=== PATIENT | male | born 1955 | race Caucasian/White ===

== ENCOUNTER 2017-10-08 04:20 | Observation (INO) | payer BC ==
[~2017-10-08] VITALS: Ht 177.8 cm; Wt 92.8 kg
[~2017-10-08 04:20] MED LIST: ASPIRIN EC325 MG PO; CIPRO500 MG PO; FLAGYL500 MG PO; IBUPROFEN800 MG PO; MOTRIN800 MG PO; PRILOSEC40 MG PO; TYLENOL REGULA325 MG PO; TYLENOL WITH C1 EACH PO
[2017-10-08 06:20] LABS: HEMATOCRIT 44.7 % (38.0-50.0); HEMOGLOBIN 15.3 G/DL (12.5-16.6); MCH 32.3 PG (29.0-34.0); MCHC 34.2 G/DL (30.0-36.0); MCV 94.3 FL (86-99); PLATELET COUNT 206 K/uL (156-360); RBC DIS.WIDTH-CV 13.8 % (11.8-14.6); RBC DIS.WIDTH-SD 48.3 % (39-53); RED BLOOD COUNT 4.74 M/uL (4.00-5.50); WHITE BLOOD COUNT 9.5 K/uL (4.1-10.2)
[2017-10-08 06:38] LABS: CHLORIDE 104 mEq/L (99-109); POTASSIUM 4.4 mEq/L (3.7-5.4); SODIUM 137 mEq/L (136-147)
[2017-10-08 06:40] LABS: GLUCOSE 107 mg/dL (70-99)
[2017-10-08 06:41] LABS: TOTAL PROTEIN 6.6 g/dL (6.4-8.3)
[2017-10-08 06:42] LABS: TOTAL BILIRUBIN 0.6 mg/dL (0.0-1.0)
[2017-10-08 06:44] LABS: ALKALINE PHOSPHATASE 47 IU/L (3-129); CREATININE 1.6 mg/dL (0.6-1.3); GFR ESTIMATE (CALCULATED) 47 mL/min/ (58.99-99999)
[2017-10-08 06:45] LABS: UREA NITROGEN (BUN) 30 mg/dL (9-23)
[2017-10-08 06:46] LABS: AST (GOT) 15 IU/L (2-34)
[2017-10-08 06:47] LABS: ALT (GPT) 18 IU/L (3-49)
[2017-10-08 06:48] LABS: TROP-I INTERPRETATION NEGATIVE; TROPONIN-I 0.01 ng/mL (0.0-0.30)
[2017-10-08 07:54] LABS: ERTH.SED.RATE 16 MM/HR (0-20)
[2017-10-08] MEDS ORDERED: ECOTRIN325 MG PO (09:47)
[2017-10-08] MEDS ORDERED: PROAIR HFA8.5 GM IH (09:48)
[2017-10-08] MEDS ORDERED: ESOMEPRAZOLE MA40 MG PO (09:48)
[2017-10-08] MEDS ORDERED: VALSARTAN320 MG PO (09:48)
[2017-10-08] MEDS ORDERED: FLUTICASONE PRO16 GM BOTH NARES (09:49)
[2017-10-08] MEDS ORDERED: MEDROL4 MG PO ×2 (09:53→09:54)
[2017-10-08 13:43] LABS: TROP-I INTERPRETATION NEGATIVE; TROPONIN-I < 0.01 ng/mL (0.0-0.30)
[2017-10-08 15:43] VITALS: BP 108/74
[2017-10-08 19:39] LABS: TROP-I INTERPRETATION NEGATIVE; TROPONIN-I < 0.01 ng/mL (0.0-0.30)
[2017-10-08 20:00] VITALS: BP 82/78; BP 85/93; BP 88/60
[2017-10-09 00:36] VITALS: BP 106/63
[2017-10-09 04:43] VITALS: BP 110/69
[2017-10-09 06:30] LABS: CHLORIDE 106 MEQ/L (99-109); CREATININE 1.3 MG/DL (0.6-1.3); GFR ESTIMATE (CALCULATED) > 59 mL/min/ (58.99-99999); GLUCOSE 87 mg/dL (70-99); POTASSIUM 4.1 MEQ/L (3.7-5.4); SODIUM 140 MEQ/L (136-147); UREA NITROGEN (BUN) 24 mg/dL (9-23)
[2017-10-09 06:57] VITALS: BP 107/72
[2017-10-09 09:12] LABS: HDL CHOLESTEROL 30 MG/DL (Desirable>=40); LDL CHOLESTEROL 63 mg/dL (Desirable<100); NON-HDL CHOLESTEROL 92 mg/dL (Desirable<160); TOTAL CHOLESTEROL 122 mg/dL (Desirable<200); TRIGLYCERIDES 147 MG/DL (Normal: <150)
[2017-10-09 10:39] VITALS: BP 121/80
[2017-10-09 11:27] VITALS: BP 115/78
[2017-10-09] MEDS ORDERED: DIOVAN160 MG PO (13:49)
[2017-10-09] MEDS ORDERED: MUCINEX600 MG PO (13:50)
[2017-10-09] MEDS ORDERED: DEBROX15 ML LEFT EAR (13:53)
[2017-10-09] MEDS ORDERED: AZITHROMYCIN500 M1 PO (13:56)
== END 2017-10-09 15:34 | disposition home or self-care (01) ==
LOC: EME 04:20 → EDOF 07:52 → 5WEST 07:52 → EDOF 07:52 → ENRESERV 07:53 → 5WEST 15:34
PROVIDERS: Emergency Medicine; Internal Medicine
DX: R27.0 Ataxia, unspecified (principal); I95.9 Hypotension, unspecified; R51 Headache; J32.9 Chronic sinusitis, unspecified; N17.9 Acute kidney failure, unspecified; K21.9 Gastro-esophageal reflux disease without esophagitis; I10 Essential (primary) hypertension; H61.22 Impacted cerumen, left ear; E86.0 Dehydration
CPT/HCPCS: 70450; 70551; 71045; 80048; 80053; 80061; 84484; 85027; 85651; 93005; 93880; G0378; J1650; J7030

== ENCOUNTER 2017-12-05 18:24 | Observation (INO) | payer BC ==
[~2017-12-05] VITALS: Ht 180.3 cm; Wt 95.1 kg
[~2017-12-05 18:24] MED LIST changes: +AZITHROMYCIN500 M1 PO; +DEBROX15 ML LEFT EAR; +DIOVAN160 MG PO; +ECOTRIN325 MG PO; +ESOMEPRAZOLE MA40 MG PO; +FLUTICASONE PRO16 GM BOTH NARES; +MEDROL4 MG PO; +MUCINEX600 MG PO; +PROAIR HFA8.5 GM IH; +VALSARTAN320 MG PO
[2017-12-05 19:27] LABS: BASOPHIL (%) 0.8 % (0-1); BASOPHIL COUNT 0.1 K/uL (0-0.1); EOSINOPHIL (%) 1.2 % (0-5); EOSINOPHIL COUNT 0.1 K/uL (0-0.3); HEMATOCRIT 44.2 % (38.0-50.0); HEMOGLOBIN 15.3 G/DL (12.5-16.6); IMMATURE GRANULOCYTE (%) 0.6 % (0.0-0.7); LYMPHOCYTE (%) 10.4 % (15-42); LYMPHOCYTE COUNT 1.1 K/uL (1.0-2.8); MCH 32.3 PG (29.0-34.0); MCHC 34.6 G/DL (30.0-36.0); MCV 93.2 FL (86-99); MONOCYTE (%) 5.9 % (3-12); MONOCYTE COUNT 0.6 K/uL (0-0.8); NEUTROPHIL (%) 81.1 % (45-76); NEUTROPHIL COUNT 8.2 K/uL (1.8-6.4); PLATELET COUNT 212 K/uL (156-360); RBC DIS.WIDTH-CV 13.5 % (11.8-14.6); RBC DIS.WIDTH-SD 46.4 % (39-53); RED BLOOD COUNT 4.74 M/uL (4.00-5.50); WHITE BLOOD COUNT 10.1 K/uL (4.1-10.2)
[2017-12-05 19:35] LABS: PTT 29.2 SEC (25-37)
[2017-12-05 19:38] LABS: CHLORIDE 106 mEq/L (99-109); POTASSIUM 3.6 mEq/L (3.7-5.4); SODIUM 144 mEq/L (136-147)
[2017-12-05 19:39] LABS: MAGNESIUM 2.1 mg/dL (1.3-2.7)
[2017-12-05 19:40] LABS: GLUCOSE 117 mg/dL (70-99)
[2017-12-05 19:44] LABS: CREATININE 1.2 mg/dL (0.6-1.3); GFR ESTIMATE (CALCULATED) > 59 mL/min/ (58.99-99999); UREA NITROGEN (BUN) 14 mg/dL (9-23)
[2017-12-05 19:50] LABS: TROP-I INTERPRETATION NEGATIVE; TROPONIN-I < 0.01 ng/mL (0.0-0.30)
[2017-12-05] MEDS ORDERED: ZYRTEC10 M3 PO (21:56)
[2017-12-05] MEDS ORDERED: ADVIL200 MG PO (21:56)
[2017-12-05 23:29] LABS: ALBUMIN 4.2 g/dL (3.2-4.8)
[2017-12-05 23:32] LABS: TOTAL PROTEIN 6.6 g/dL (6.4-8.3)
[2017-12-05 23:34] LABS: TOTAL BILIRUBIN 0.5 mg/dL (0.0-1.0)
[2017-12-05 23:35] LABS: ALKALINE PHOSPHATASE 50 IU/L (3-129)
[2017-12-05 23:38] LABS: ALT (GPT) 24 IU/L (3-49); AST (GOT) 18 IU/L (2-34); DIRECT BILIRUBIN 0.2 mg/dL (0.0-0.3)
[2017-12-06 01:04] LABS: HEMATOCRIT 41.1 % (38.0-50.0); HEMOGLOBIN 14.2 G/DL (12.5-16.6); MCV 94.1 FL (86-99)
[2017-12-06 03:32] VITALS: BP 124/66
[2017-12-06 05:30] LABS: BASOPHIL (%) 0.4 % (0-1); EOSINOPHIL (%) 0.5 % (0-5); HEMATOCRIT 40.9 % (38.0-50.0); HEMOGLOBIN 13.8 G/DL (12.5-16.6); IMMATURE GRANULOCYTE (%) 0.4 % (0.0-0.7); LYMPHOCYTE (%) 24.9 % (15-42); MCH 31.7 PG (29.0-34.0); MCHC 33.7 G/DL (30.0-36.0); MONOCYTE (%) 7.6 % (3-12); MONOCYTE COUNT 0.6 K/uL (0-0.8); NEUTROPHIL (%) 66.2 % (45-76); NEUTROPHIL COUNT 5.4 K/uL (1.8-6.4); PLATELET COUNT 207 K/uL (156-360); RBC DIS.WIDTH-CV 13.7 % (11.8-14.6); RBC DIS.WIDTH-SD 47.3 % (39-53); RED BLOOD COUNT 4.35 M/uL (4.00-5.50); WHITE BLOOD COUNT 8.2 K/uL (4.1-10.2)
[2017-12-06 05:54] LABS: CHLORIDE 110 MEQ/L (99-109); GFR ESTIMATE (CALCULATED) > 59 mL/min/ (58.99-99999); GLUCOSE 104 mg/dL (70-99); POTASSIUM 3.6 MEQ/L (3.7-5.4); SODIUM 143 MEQ/L (136-147); UREA NITROGEN (BUN) 10 mg/dL (9-23)
[2017-12-06 07:15] VITALS: BP 136/86
[2017-12-06 12:08] VITALS: BP 146/82
[2017-12-06 12:23] LABS: HEMATOCRIT 40.4 % (38.0-50.0); HEMOGLOBIN 13.6 G/DL (12.5-16.6); MCV 95.1 FL (86-99)
[2017-12-06 16:07] VITALS: BP 141/85
[2017-12-06 17:47] LABS: HEMATOCRIT 40.1 % (38.0-50.0); HEMOGLOBIN 13.5 G/DL (12.5-16.6)
[2017-12-06 19:19] VITALS: BP 136/87
[2017-12-06 23:48] VITALS: BP 145/87
[2017-12-07 03:51] VITALS: BP 144/86
[2017-12-07 07:38] LABS: HEMATOCRIT 42.8 % (38.0-50.0); HEMOGLOBIN 14.6 G/DL (12.5-16.6); MCH 32.2 PG (29.0-34.0); MCHC 34.1 G/DL (30.0-36.0); MCV 94.5 FL (86-99); PLATELET COUNT 206 K/uL (156-360); RBC DIS.WIDTH-CV 13.8 % (11.8-14.6); RBC DIS.WIDTH-SD 48.1 % (39-53); RED BLOOD COUNT 4.53 M/uL (4.00-5.50); WHITE BLOOD COUNT 7.8 K/uL (4.1-10.2)
[2017-12-07 07:43] VITALS: BP 139/82
[2017-12-07 11:55] VITALS: BP 128/77
== END 2017-12-07 13:29 | disposition home or self-care (01) ==
LOC: EME 18:24 → EDOF 22:55 → ENRESERV 22:56 → 4SOUTH 12-06 00:01
PROVIDERS: Emergency Medicine; Hospitalist; Internal Medicine Gastroenterology
PROC: 0DB68ZX Excision of Stomach, Via Natural or Artificial Opening Endoscopic, Diagnostic (ICD-10-PCS; principal; 2017-12-07)
DX: K92.0 Hematemesis (principal); K44.9 Diaphragmatic hernia without obstruction or gangrene; K29.70 Gastritis, unspecified, without bleeding; R10.10 Upper abdominal pain, unspecified; I10 Essential (primary) hypertension; K21.9 Gastro-esophageal reflux disease without esophagitis; G89.29 Other chronic pain; M54.9 Dorsalgia, unspecified; Z79.1 Long term (current) use of non-steroidal anti-inflammatories (NSAID); K57.30 Diverticulosis of large intestine without perforation or abscess without bleeding; K42.9 Umbilical hernia without obstruction or gangrene; R61 Generalized hyperhidrosis; G47.33 Obstructive sleep apnea (adult) (pediatric); J98.11 Atelectasis; Z86.010 Personal history of colon polyps; Z82.49 Family history of ischemic heart disease and other diseases of the circulatory system; Z82.3 Family history of stroke
CPT/HCPCS: 71045; 71275; 74177; 80048; 80076; 82948; 83735; 84484; 85014; 85018; 85025; 85027; 85610; 85730; 88305; 88342 TC; 93005; 94799; 99281; 99285; C9113; G0378; J2405; J3010; J3480; J7030